=== PATIENT | female | born 1995 | race Hispanic/Latino ===

== ENCOUNTER 2018-12-07 23:31 | Emergency (ER) | payer OTHER ==
[2018-12-08] MEDS ORDERED: NA CHLORIDE 0.9% 1,000 ML ONE (00:30)
[2018-12-08 01:09] LABS: Urine Blood NEGATIVE (NEG); Urine Glucose NEGATIVE (NEG); Urine Protein 1+ (NEG); Urine Specific Gravity >1.030 (1.005-1.030); Urine pH 5.5 (5.0-7.0)
[2018-12-08 01:09] LABS: Absolute Lymphocytes (CBC) 3.2 K/uL (0.7-4.9); Basophils % 0.2 % (0-1.3); Eosinophils % 1.4 % (0-4.4); Hematocrit 33.8 % (36.0-45.0); Lymphocytes % 31.3 % (15.3-44.8); MPV 8.6 fL (7.6-11.3); RBC Red Blood Cell Count 4.84 M/uL (3.86-4.86)
[2018-12-08 01:30] LABS: Blood Morphology Comment NOTED (NOT SEEN); Platelet Estimate ADEQ; Urine White Blood Cell Casts OK
[2018-12-08] MEDS ORDERED: MORPHINE 2 MG/ML SYR ONE (01:32)
[2018-12-08] MEDS ORDERED: ONDANSETRON 4 MG/2 ML VIAL ONE (01:32)
[2018-12-08 01:52] LABS: ALT/SGPT 15 U/L (12-78); AST/SGOT 10 U/L (15-37); Albumin 3.2 g/dL (3.4-5.0); Alkaline Phosphatase 59 U/L (45-117); BUN Blood Urea Nitrogen 6 mg/dL (7-18); Bicarbonate 24 mmol/L (21-32); Bilirubin Direct < 0.1 mg/dL (0-0.2); Bilirubin Total 0.2 mg/dL (0.2-1.0); Glucose Level 90 mg/dL (74-106); HCG, Quantitative 13472 mIU/mL (1-3); Lipase 149 U/L (73-393); Potassium 3.6 mmol/L (3.5-5.1); Protein, Total 7.7 g/dL (6.4-8.2); Sodium Level 139 mmol/L (136-145)
--- NOTE | 2018-12-08 02:40 | ER ---
Nurse's Notes [facility] Name: Susan Barcenas Age: 23 yrs Sex: Female : 1995 Arrival Date: 12/07/2018 Time: 23:40 Bed 19 Private MD: Diagnosis: Abdominal tenderness; related conditions, unspecified, second trimester;Cholelithiasis Presentation: 12/07 23:49 Presenting complaint: Patient states: RUQ abdominal pain that began about 2100; states lp1 some nausea related to pain; Denies any diarrhea, vomiting; Patient states 17 weeks . Transition of care: patient was not received from another setting of care. Onset of symptoms was December 07, 2018 at 21:00. Risk Assessment: Do you want to hurt yourself or someone else? Patient reports no desire to harm self or others. Initial Sepsis Screen: Does the patient meet any 2 criteria? No. Patient's initial sepsis screen is negative. Does the patient have a suspected source of infection? No. Patient's initial sepsis screen is negative. Care prior to arrival: None. 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 - Social history:: Smoking status: Patient/guardian denies using tobacco. - Ebola Screening: : No symptoms or risks identified at this time. - Family history:: not pertinent. Screenin:57 Abuse screen: Denies threats or abuse. Denies injuries from another. Nutritional lp1 screening: No deficits noted. Tuberculosis screening: No symptoms or risk factors identified. Fall Risk None identified. Assessment: 23:55 General: Appears in no apparent distress. Behavior is calm, cooperative, appropriate lp1 for age. Pain: Complains of pain in right upper quadrant Pain currently is 4 out of 10 on a pain scale. Quality of pain is described as aching. Neuro: Level of Consciousness is awake, alert, obeys commands, Oriented to person, place, time, situation. Cardiovascular: Patient's skin is warm and dry. Respiratory: Respiratory effort is even, unlabored. GI: Abdomen is non-distended, Bowel sounds present X 4 quads. Abdomen is tender to palpation in right upper quadrant Reports nausea. : No signs and/or symptoms were reported regarding the genitourinary system. EENT: No signs and/or symptoms were reported regarding the EENT system. Derm: Skin is pink, warm \T\ dry. Musculoskeletal: No deficits noted. 12/08 01:10 Reassessment: Patient states pain increasing to abdomen, pointing to pain in mid lp1 abdomen, appears uncomfortable; Provider notified. 02:07 Reassessment: Patient is alert, oriented x 3, equal unlabored respirations, skin lp1 warm/dry/pink. Patient states feeling better. Patient states symptoms have improved. Vital Signs: 12/07 23:53 BP 124 / 80; Pulse 77; Resp 16; Temp 98.4(O); Pulse Ox 100% on R/A; Weight 81.65 kg; lp1 Height 5 ft. 3 in. (160.02 cm); Pain 4/10; 12/08 02:06 BP 103 / 58; Pulse 73; Resp 16; Pulse Ox 100% on R/A; Pain 3/10; lp1 02:50 BP 104 / 60; Pulse 73; Resp 16; Pulse Ox 100% on R/A; lp1 12/07 23:53 Body Mass Index 31.89 (81.65 kg, 160.02 cm) lp1 Vitals: 01:44 Heart Tones 142 bpm. lp1 ED Course: 12/07 23:40 Patient arrived in ED. es 23:48 Latasha Sanchez, CHRISTIN is Primary Nurse. lp1 23:53 Triage completed. lp1 23:54 Arm band placed on right wrist. lp1 23:57 Patient has correct armband on for positive identification. Placed in gown. lp1 12/08 00:12 Tulio Crowder MD is Attending Physician. siobhan 00:25 Inserted saline lock: 20 gauge in right antecubital area, using aseptic technique. lp1 Blood collected. 02:51 No provider procedures requiring assistance completed. IV discontinued, No lp1 redness/swelling at site. Pressure dressing applied. Administered Medications: 00:25 Drug: NS 0.9% 1000 ml Route: IV; Rate: 1 bolus; Site: right antecubital; lp1 02:00 Follow up: IV Status: Completed infusion; IV Intake: 1000ml lp1 01:21 Drug: morphine 2 mg Route: IVP; Site: right antecubital; lp1 01:45 Follow up: Response: Pain is decreased lp1 01:21 Drug: Zofran 4 mg Route: IVP; Site: right antecubital; lp1 01:45 Follow up: Response: No adverse reaction lp1 02:49 Not Given (Pain decreased ): morphine 2 mg IVP once lp1 Intake: 02:00 IV: 1000ml; Total: 1000ml. lp1 Outcome: 02:39 Discharge ordered by MD. mccann 02:51 Discharged to home ambulatory, with friend. lp1 02:51 Condition: good 02:51 Discharge instructions given to patient, Instructed on discharge instructions, follow up and referral plans. medication usage, Demonstrated understanding of instructions, follow-up care, medications, Prescriptions given X 1. 02:52 Patient left the ED. lp1 Signatures: Tulio Crowder MD MD cha Salyer, Edna es Pena, Laura, RN RN lp1
--- NOTE | 2018-12-08 02:41 | EDPHYS ---
Physician Documentation [facility] Name: Susan Barcenas Age: 23 yrs Sex: Female : 1995 Arrival Date: 12/07/2018 Time: 23:40 Bed 19 Private MD: ED Physician Tulio Crowder HPI: 12/08 00:54 This 23 yrs old Female presents to ER via Ambulatory with complaints of siobhan Abdominal Pain, 17 WKS PREG. 00:54 The patient presents with abdominal pain in the epigastric area, in the upper abdomen, siobhan in the right upper quadrant. Onset: The symptoms/episode began/occurred 2 day(s) ago. The symptoms radiate to back. Associated signs and symptoms: none. The symptoms are described as achy, crampy. Modifying factors: The symptoms are alleviated by nothing, the symptoms are aggravated by food. Severity of pain: At its worst the pain was mild. 00:59 The patient has experienced similar episodes in the past, several times. 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 - Social history:: Smoking status: Patient/guardian denies using tobacco. - Ebola Screening: : No symptoms or risks identified at this time. - Family history:: not pertinent. ROS: 12/08 00:54 Constitutional: Negative for fever, chills, and weight loss, Eyes: Negative for injury, siobhan pain, redness, and discharge, ENT: Negative for injury, pain, and discharge, Neck: Negative for injury, pain, and swelling, Cardiovascular: Negative for chest pain, palpitations, and edema, Respiratory: Negative for shortness of breath, cough, wheezing, and pleuritic chest pain, Back: Negative for injury and pain, : Negative for injury, bleeding, discharge, and swelling, MS/Extremity: Negative for injury and deformity, Skin: Negative for injury, rash, and discoloration, Neuro: Negative for headache, weakness, numbness, tingling, and seizure, Psych: Negative for depression, anxiety, suicide ideation, homicidal ideation, and hallucinations, Allergy/Immunology: Negative for hives, rash, and allergies, Endocrine: Negative for neck swelling, polydipsia, polyuria, polyphagia, and marked weight changes, Hematologic/Lymphatic: Negative for swollen nodes, abnormal bleeding, and unusual bruising. Abdomen/GI: Positive for abdominal pain, of the epigastric area and right upper quadrant. Exam: 00:54 Constitutional: This is a well developed, well nourished patient who is awake, alert, siobhan and in no acute distress. Head/Face: Normocephalic, atraumatic. Eyes: Pupils equal round and reactive to light, extra-ocular motions intact. Lids and lashes normal. Conjunctiva and sclera are non-icteric and not injected. Cornea within normal limits. Periorbital areas with no swelling, redness, or edema. ENT: Nares patent. No nasal discharge, no septal abnormalities noted. Tympanic membranes are normal and external auditory canals are clear. Oropharynx with no redness, swelling, or masses, exudates, or evidence of obstruction, uvula midline. Mucous membranes moist. Neck: Trachea midline, no thyromegaly or masses palpated, and no cervical lymphadenopathy. Supple, full range of motion without nuchal rigidity, or vertebral point tenderness. No Meningismus. Chest/axilla: Normal chest wall appearance and motion. Nontender with no deformity. No lesions are appreciated. Cardiovascular: Regular rate and rhythm with a normal S1 and S2. No gallops, murmurs, or rubs. Normal PMI, no JVD. No pulse deficits. Respiratory: Lungs have equal breath sounds bilaterally, clear to auscultation and percussion. No rales, rhonchi or wheezes noted. No increased work of breathing, no retractions or nasal flaring. Back: No spinal tenderness. No costovertebral tenderness. Full range of motion. Skin: Warm, dry with normal turgor. Normal color with no rashes, no lesions, and no evidence of cellulitis. MS/ Extremity: Pulses equal, no cyanosis. Neurovascular intact. Full, normal range of motion. Neuro: Awake and alert, GCS 15, oriented to person, place, time, and situation. Cranial nerves II-XII grossly intact. Motor strength 5/5 in all extremities. Sensory grossly intact. Cerebellar exam normal. Normal gait. Psych: Awake, alert, with orientation to person, place and time. Behavior, mood, and affect are within normal limits. 00:54 Abdomen/GI: Inspection: distension, gravid appearance, Bowel sounds: normal, Palpation: mild abdominal tenderness, in the epigastric area and right upper quadrant, Liver: no appreciated palpable abnormalities, Hernia: not appreciated. Vital Signs: 12/07 23:53 BP 124 / 80; Pulse 77; Resp 16; Temp 98.4(O); Pulse Ox 100% on R/A; Weight 81.65 kg; lp1 Height 5 ft. 3 in. (160.02 cm); Pain 4/10; 12/08 02:06 BP 103 / 58; Pulse 73; Resp 16; Pulse Ox 100% on R/A; Pain 3/10; lp1 02:50 BP 104 / 60; Pulse 73; Resp 16; Pulse Ox 100% on R/A; lp1 12/07 23:53 Body Mass Index 31.89 (81.65 kg, 160.02 cm) lp1 MDM: 00:12 Patient medically screened. [facility] 00:57 Data reviewed: vital signs, nurses notes, lab test result(s). [facility] 12/08 00:10 Order name: Quantitative Hcg [facility] 12/08 00:10 Order name: Abo/rh Typing [facility] 12/08 00:10 Order name: Basic Metabolic Panel [facility] 12/08 00:10 Order name: CBC with Diff [facility] 12/08 00:19 Order name: Urine Dipstick--Ancillary (enter results) [facility] 12/08 00:19 Order name: Urine --Ancillary (enter results) [facility] 12/08 00:52 Order name: LFT's [facility] 12/08 00:52 Order name: Lipase [facility] 12/08 01:12 Order name: Urine --Ancillary; Complete Time: 01:15 [facility] 12/08 01:12 Order name: Urine Dipstick-Ancillary; Complete Time: 01:15 [facility] 12/08 01:13 Order name: CBC with Automated Diff; Complete Time: 02:38 [facility] 12/08 01:13 Order name: CBC Smear Scan; Complete Time: 02:38 [facility] 12/08 01:54 Order name: Basic Metabolic Panel; Complete Time: 02:38 [facility] 12/08 01:54 Order name: Liver (Hepatic) Function; Complete Time: 02:38 [facility] 12/08 00:10 Order name: Urine Test (obtain specimen); Complete Time: 00:13 [facility] 12/08 00:10 Order name: IV Saline Lock; Complete Time: 00:34 [facility] 12/08 00:10 Order name: Labs collected and sent; Complete Time: 00:34 [facility] 12/08 00:10 Order name: NPO; Complete Time: 00:13 [facility] 12/08 00:10 Order name: Urine Dipstick-Ancillary (obtain specimen); Complete Time: 00:13 [facility] 12/08 00:52 Order name: FHT's; Complete Time: 01:46 [facility] 12/08 01:54 Order name: Lipase; Complete Time: 02:38 [facility] 12/08 01:54 Order name: HCG, Quantitative; Complete Time: 02:38 [facility] 12/08 01:57 Order name: ABO/RH typing; Complete Time: 02:38 [facility] Administered Medications: 00:25 Drug: NS 0.9% 1000 ml Route: IV; Rate: 1 bolus; Site: right antecubital; lp1 02:00 Follow up: IV Status: Completed infusion; IV Intake: 1000ml lp1 01:21 Drug: morphine 2 mg Route: IVP; Site: right antecubital; lp1 01:45 Follow up: Response: Pain is decreased lp1 01:21 Drug: Zofran 4 mg Route: IVP; Site: right antecubital; lp1 01:45 Follow up: Response: No adverse reaction lp1 02:49 Not Given (Pain decreased ): morphine 2 mg IVP once lp1 Disposition: 12/08/18 02:39 Discharged to Home. Impression: Abdominal tenderness, related conditions, unspecified, second trimester, Cholelithiasis. - Condition is Stable. - Discharge Instructions: Abdominal Pain, Adult, Biliary Colic, Adult, Cholelithiasis, Cholelithiasis, [id number], Abdominal Pain, Adult, [id number], Second Trimester of , [id number]. - Prescriptions for Vitamin 27- 0.8 mg Oral Tablet - take 1 tablet by ORAL route once daily; 30 tablet. - Medication Reconciliation Form, Thank You Letter, Antibiotic Education, Prescription Opioid Use form. - Follow up: Private Physician; When: 2 - 3 days; Reason: Recheck today's complaints, Continuance of care, Re-evaluation by your physician. - Problem is new. - Symptoms have improved. Signatures: Dispatcher [employer] EDNC Tulio Crowder MD MD cha Pena, Laura RN RN lp1 Corrections: (The following items were deleted from the chart) 02:52 02:39 12/08/2018 02:39 Discharged to Home. Impression: Abdominal tenderness; lp1 related conditions, unspecified, second trimester; Cholelithiasis. Condition is Stable. Discharge Instructions: Abdominal Pain, Adult, Biliary Colic, Adult, Cholelithiasis, Cholelithiasis, [id number], Abdominal Pain, Adult, Vrra-to-Ozew, Second Trimester of , [id number]. Prescriptions for Vitamin 27-0.8 mg Oral Tablet - take 1 tablet by ORAL route once daily; 30 tablet. and Forms are Medication Reconciliation Form, Thank You Letter, Antibiotic Education, Prescription Opioid Use. Follow up: Private Physician; When: 2 - 3 days; Reason: Recheck today's complaints, Continuance of care, Re-evaluation by your physician. Problem is new. Symptoms have improved. soibhan
== END 2018-12-08 02:52 | disposition home or self-care (01) ==
LOC: ER 23:31
DX: O99.612 Diseases of the digestive system complicating pregnancy, second trimester (principal); Z3A.19 19 weeks gestation of pregnancy
CPT/HCPCS: 36415; 80048; 80076; 81003; 81025; 83690; 84702; 85025; 86900; 86901; 96361; 96374; 96375; 99284; J2270; J2405; J7030